=== PATIENT | female | born 1990 | race Caucasian/White ===

== ENCOUNTER 2017-12-13 14:59 | Emergency (ER) | payer SELFPAY ==
[~2017-12-13] VITALS: Ht 154.9 cm; Wt 67.1 kg
[2017-12-13 16:05] LABS: BACTERIA,URINE NEGATIVE /HPF; BILIRUBIN,URINE NEGATIVE (NEGATIVE); CLARITY,URINE SLIGHTLY CLOUDY; COLOR,URINE YELLOW; GLUCOSE, URINE (UA) NEGATIVE (NEGATIVE); KETONES,URINE NEGATIVE (NEGATIVE); LEUKOCYTE ESTERASE ,URINE 1+ (NEGATIVE); NITRITE,URINE NEGATIVE (NEGATIVE); PH,URINE 6 (5-9); PROTEIN,URINE NEGATIVE (NEGATIVE); SQUAMOUS EPITHELIAL CELL,UR TNTC /HPF; UROBILINOGEN,URINE NORMAL (NORMAL); WBC,URINE 0-2 /HPF
--- NOTE | 2017-12-13 16:31 | ED GU-Female ---
General Chief Complaint: -Female Stated Complaint: POSS UTI Nursing Triage Note: PT STATES URINARY SYMPTOMS FOR A FEW DAYS, WITH CRAMPS. Nursing Sepsis Screen: No Definite Risk Source: patient, other (significant other) Exam Limitations: no limitations History of Present Illness Time seen by provider: 16:04 Initial Comments 27-year-old female patient presents to the emergency department with complaints of lower abdominal cramping for several days. Patient states she has had her IUD and for approximately 6 years. States it was supposed to be taken out previously, but had lost her medical card. Patient is concerned about having a urinary tract infection. Denies frequency or dysuria. Has had a yellowish vaginal discharge for approximately one week. Timing/Duration: week, getting worse Severity/Quality: cramping Location: suprapubic Radiation: none Activities at Onset: none Prior Genitourinary Problems: similar symptoms Sexual [place] History: less than 2 months ago, single partner Allergies and Home Medications Allergies Coded Allergies: No Known Drug Allergies (Unverified , 12/13/17) Home Medications Metronidazole 500 Mg Tablet, 500 MG PO BID, #14 Ref 0 Prescribed by: CYNDI OJEDA on 12/13/17 1726 Constitutional: No chills, No fever, No malaise EENTM: no symptoms reported Respiratory: No cough, No phlegm, No short of breath Cardiovascular: No chest pain, No palpitations, No syncope Gastrointestinal: abdominal pain (suprapubic abdominal cramping), No constipation, No diarrhea, No loss of appetite, No melena, No nausea, No vomiting Genitourinary: see HPI, denies burning, discharge, denies dysuria, denies frequency, denies flank pain, denies hematuria, pain : No Musculoskeletal: no symptoms reported Skin: no symptoms reported Psychiatric/Neurological: No Symptoms Reported All Other Systemes Reviewed Negative Unless Noted: Yes (Negative excepted noted.) Past Ocxlssr-Dlhqnz-Xduixl Hx Patient Social History Alcohol Use: Denies Use Recreational Drug Use: No Smoking Status: Former Smoker Type Used: Cigarettes Former Smoker, Quit: Nov 28, 2005 Recent Foreign Travel: No Contact w/Someone Who Travel: No Recent Infectious Disease Expo: No Recent Hopitalizations: No Seasonal Allergies Seasonal Allergies: No Surgeries History of Surgeries: No Respiratory History of Respiratory Disorde: No Cardiovascular History of Cardiac Disorders: No Neurological History of Neurological Disord: No Reproductive System : No Last Menstrual Period: Dec 06, 2017 [employer] History: IUD Genitourinary History of Genitourinary Disor: No Gastrointestinal History of Gastrointestinal Di: No Musculoskeletal History of Musculoskeletal Dis: No Endocrine History of Endocrine Disorders: No HEENT History of HEENT Disorders: No Cancer History of Cancer: No Psychosocial History of Psychiatric Problem: Yes Behavioral Health Disorders: Anxiety, Depression Integumentary History of Skin or Integumenta: No Reviewed Nursing Assessment Reviewed/Agree w Nursing PMH: Yes Family Medical History Significant Family History: No Pertinent Family Hx Physical Exam Vital Signs Vital Sign - Last 12Hours 12/13/17 15:20 Temp 98.2 Pulse 83 Resp 20 B/P (MAP) 121/68 (85) Pulse Ox 100 O2 Delivery Room Air Capillary Refill : Less Than 3 Seconds General Appearance: WD/WN, no apparent distress HEENT: PERRL/EOMI, pharynx normal Neck: supple, normal inspection Cardiovascular: normal peripheral pulses, regular rate, rhythm, no edema, no murmur Respiratory: lungs clear, normal breath sounds, no respiratory distress, no accessory muscle use Gastrointestinal: normal bowel sounds, soft, no organomegaly, No distended, No guarding, No rebound, tenderness (suprapubic tenderness), No mass Pelvic: normal external exam, normal adnexa, no cerv. motion tender, no masses , discharge (White discharge noted on exam) Back: normal inspection, no CVA tenderness Extremities: no pedal edema, normal capillary refill Neurologic/Psychiatric: alert, normal mood/affect, oriented x 3 Skin: normal color, warm/dry Progress/Results/Core Measures Suspected Sepsis Recent Fever Within 48 Hours: No Infection Criteria Present: None New/Unexplained Altered Menta: No Sepsis Screen: No Definite Risk Sepsis Diagnosis: SIRS Temperature:98.2 Pulse: 83 Respiratory Rate: 20 Blood Pressure 121 /68 Mean: 85 Results/Orders Lab Results Laboratory Tests Test 12/13/17 15:15 12/13/17 17:20 Range/Units Urine Color YELLOW Urine Clarity SLIGHTLY CLOUDY Urine pH 6 5-9 Urine Specific Sullivan 1.020 1.016-1.022 Urine Protein NEGATIVE NEGATIVE Urine Glucose (UA) NEGATIVE NEGATIVE Urine Ketones NEGATIVE NEGATIVE Urine Nitrite NEGATIVE NEGATIVE Urine Bilirubin NEGATIVE NEGATIVE Urine Urobilinogen NORMAL NORMAL MG/DL Urine Leukocyte Esterase 1+ H NEGATIVE Urine RBC (Auto) NEGATIVE NEGATIVE Urine RBC NONE /HPF Urine WBC 0-2 /HPF Urine Squamous Epithelial Cells TNTC H /HPF Urine Crystals NONE /LPF Urine Bacteria NEGATIVE /HPF Urine Casts NONE /LPF Urine Mucus NEGATIVE /LPF Urine Culture Indicated NO My Orders Orders - CYNDI OJEDA Urine Bedside (12/13/17 15:18) Ua Culture If Indicated (12/13/17 15:18) Ketorolac Injection (Toradol Injection) (12/13/17 16:38) Wet Prep (12/13/17 16:38) Neisseria Gonorrhea Dna (12/13/17 16:38) Chlamydia Dna (12/13/17 16:38) Genital Culture (12/13/17 16:38) Vital Signs/I&O Vital Sign - Last 12Hours 12/13/17 12/13/17 12/13/17 15:20 16:52 17:32 Temp 98.2 98.2 98.2 Pulse 83 83 Resp 20 20 B/P (MAP) 121/68 (85) Pulse Ox 100 100 O2 Delivery Room Air Room Air Capillary Refill : Less Than 3 Seconds Blood Pressure Mean: 85 Point of Care Testing Urine -Bedside: Negative Departure Impression Impression: Primary Impression: BV (bacterial vaginosis) Disposition: 01 HOME, SELF-CARE Condition: Improved Departure-Patient Inst. Decision time for Depature: 17:25 Referrals: NO,LOCAL PHYSICIAN (PCP/Family) Primary Care Physician Patient Instructions: Bacterial Vaginosis (DC) Add. Discharge Instructions: All discharge instructions reviewed with patient and/or family. Voiced understanding. Medications as instructed. Tylenol Extra Strength over-the- counter as directed for pain. Ibuprofen 800 mg by mouth every 8 hours as needed for pain. Follow-up with your primary care provider for recheck as an outpatient and formal Pap smear/IUD removal. Return to the emergency department for worsened symptoms or any other concerns. Scripts Metronidazole (Metronidazole) 500 Mg Tablet 500 MG PO BID, #14 TAB 0 Refills Prov: CYNDI OJEDA 12/13/17 Work/School Note: Local [employer]ing, Work Release Form Date Seen in the Emergency Department: Dec 13, 2017 Return to Work: Dec 14, 2017 CYNDI OJEDA Dec 13, 2017 16:31
[2017-12-13] MEDS ORDERED: KETOROLAC 60 MG/2 ML VIAL IM STA (16:38)
[2017-12-13] MEDS ORDERED: METR500T21 PO (17:26)
[2017-12-13 17:32] VITALS: BP 121/68
== END 2017-12-13 17:32 | disposition home or self-care (01) ==
LOC: ER 15:03
DX: N76.0 Acute vaginitis (principal); B96.89 Other specified bacterial agents as the cause of diseases classified elsewhere; F41.9 Anxiety disorder, unspecified; F32.9 Major depressive disorder, single episode, unspecified; Z97.5 Presence of (intrauterine) contraceptive device; Z87.891 Personal history of nicotine dependence
CPT/HCPCS: 36415; 81000; 84703; 87070; 87210; 87491; 87591; 96372; 99284

== ENCOUNTER → 2018-12-15 | Emergency (ER) | payer SELFPAY ==
[~2018-12-15] MED LIST: CYCL10TA9 PO; DICL75TA2 PO; METR-197 PO; PRD20T PO
--- OUTSIDE RECORDS SUMMARY | 2018-12-15 16:11 | XMS REPORT ---
Author Author XOCHITL MACHADO Organization [facility] Address [address] [place] [address] Care Team Providers Care Telephone Order Supervisor Name Role Phone XOCHITL MACHADO Unavailable PROBLEMS Type Condition ICD9-CM Code [id number] Code Onset Dates Condition Status SNOMED Code Problem Anxiety, generalized F41.1 Active 03505991 Problem Drug abuse and dependence F19.20 Active 3387465 Problem Severe episode of recurrent major depressive disorder, without psychotic features F33.2 Active 39778413 ALLERGIES No Known Allergies ENCOUNTERS Encounter Location Date Diagnosis [place] [id number] [phone] May, [facility] [address] [place] [id number] [place] [id number] Jul, control counseling Z30.09 [facility] [address] [address] Jul, [facility] [address] [id number] Jun, Severe episode of recurrent major depressive disorder, without psychotic features F33.2 ; Anxiety, generalized F41.1 and Drug abuse and dependence F19.20 IMMUNIZATIONS No Known Immunizations SOCIAL HISTORY Never Assessed REASON FOR VISIT Establish Care-pt would like to discuss an IUD removal and insertion-Donald PLAN OF CARE Activity Details Follow Up Will get you scheduled for IUD insertion when device arrives Reason: VITAL SIGNS Height 61 in 2017-08-25 Weight 147.5 lbs 2017-08-25 Temperature 99.3 degrees Fahrenheit 2017-08-25 Heart Rate 80 bpm 2017-08-25 Respiratory Rate 18 2017-08-25 Oximetry 99 % 2017-08-25 BMI 27.87 kg/m2 2017-08-25 Blood pressure systolic 102 mmHg 2017-08-25 Blood pressure diastolic 76 mmHg 2017-08-25 MEDICATIONS Medication Instructions Dosage Frequency Start Date End Date Duration Status Viibryd 10 MG Orally Once a day 1 tablet with food 24h Active HydrOXYzine HCl 10 mg Orally 2 times prn Active Celexa 20 MG Orally Once a day 1 tablet 24h Not-Taking RESULTS No Results PROCEDURES No Known procedures INSTRUCTIONS MEDICATIONS ADMINISTERED No Known Medications MEDICAL (GENERAL) HISTORY Type Description Date Medical History depression Medical History anxiety Hospitalization History childbirth only
== END | disposition left against medical advice (07) ==
LOC: EDUNIT# 16:00 → ER 16:01
DX: R11.10 Vomiting, unspecified (principal); R61 Generalized hyperhidrosis; R25.1 Tremor, unspecified